=== PATIENT | male | born 1935 | race Caucasian/White ===

== ENCOUNTER → 2017-01-14 | Outpatient (CLI) | payer MEDICARE, OTHER ==
[2017-01-14 14:24] LABS: HEMATOCRIT 36.3 % (37.9-51.0); HEMOGLOBIN 12.1 g/dL (13.5-17.0); MEAN CORPUSCULAR HGB CONC 33.4 g/dL (32.0-36.0); MEAN CORPUSCULAR VOLUME 102 fl (80-97); RED BLOOD COUNT 3.57 10^6/uL (4.35-5.55); RED CELL DISTRIBUTION WIDTH 14.3 % (11.5-14.0); WHITE BLOOD COUNT 26.1 10^3/uL (4.0-10.5)
[2017-01-14 14:27] LABS: APPEARANCE,URINE CLEAR; BILIRUBIN,URINE NEGATIVE (NEGATIVE); GLUCOSE, URINE NEGATIVE (NEGATIVE); KETONES,URINE NEGATIVE (NEGATIVE); LEUKOCYTE ESTERASE,URINE NEGATIVE (NEGATIVE); NITRITE,URINE NEGATIVE (NEGATIVE); PROTEIN,URINE NEGATIVE (NEGATIVE); URINE SPECIFIC GRAVITY 1.006; UROBILINOGEN,URINE NEGATIVE mg/dL (<2.0)
[2017-01-14 14:45] LABS: ALBUMIN 3.9 g/dL (3.5-5.0); ANION GAP 8 (5-19); BLOOD UREA NITROGEN 43 mg/dL (7-20); CALCIUM 9.2 mg/dL (8.4-10.2); CARBON DIOXIDE 23 mmol/L (22-30); CHLORIDE 108 mmol/L (98-107); CREATININE RESULT 2.94 mg/dL (0.52-1.25); GLUCOSE 92 mg/dL (75-110); PHOSPHORUS 4.2 mg/dL (2.5-4.5); POTASSIUM 4.8 mmol/L (3.6-5.0); SODIUM 139.1 mmol/L (137-145)
[2017-01-14 14:52] LABS: BASOPHILS % (MANUAL) 0 % (0-2); EOSINOPHILS % (MANUAL) 1 % (0-6); TOTAL CELLS COUNTED 100
[2017-01-14 14:57] LABS: ANISOCYTOSIS SLIGHT; SMUDGE CELLS PRESENT; TOXIC GRANULATION SLIGHT
[2017-01-14 15:19] LABS: LYMPHOCYTES % (MANUAL) 67 % (13-45)
[2017-01-16 11:07] LABS: VITAMIN D 25-HYDROXY 53.8 ng/mL (30.0-100.0)
[2017-01-16 11:40] LABS: CREATININE URINE 42.2 mg/dL (Not Estab.); MICROALBUMIN URINE <3.0 ug/mL (Not Estab.)
== END ==
LOC: OD 13:30
PROVIDERS: ATTEND Internal Medicine Nephrology
DX: I12.9 Hypertensive chronic kidney disease with stage 1 through stage 4 chronic kidney disease, or unspecified chronic kidney disease (principal); N18.4 Chronic kidney disease, stage 4 (severe); N25.81 Secondary hyperparathyroidism of renal origin
CPT/HCPCS: 36415; 80048; 81001; 82040; 82043; 82306; 82570; 83970; 84100; 85025

== ENCOUNTER → 2017-05-18 | Outpatient (CLI) | payer MEDICARE, OTHER ==
[2017-05-18 12:31] LABS: ANION GAP 10 (5-19); BLOOD UREA NITROGEN 41 mg/dL (7-20); CALCIUM 8.2 mg/dL (8.4-10.2); CARBON DIOXIDE 21 mmol/L (22-30); CHLORIDE 109 mmol/L (98-107); CREATININE RESULT 3.61 mg/dL (0.52-1.25); GLUCOSE 135 mg/dL (75-110); POTASSIUM 4.7 mmol/L (3.6-5.0); SODIUM 140.3 mmol/L (137-145)
== END ==
LOC: OD 10:14
PROVIDERS: ATTEND Internal Medicine Nephrology
DX: N18.4 Chronic kidney disease, stage 4 (severe) (principal)
CPT/HCPCS: 36415; 80048

== ENCOUNTER → 2017-08-19 | Outpatient (CLI) | payer MEDICARE, OTHER ==
[2017-08-19 16:36] LABS: APPEARANCE,URINE CLEAR; BILIRUBIN,URINE NEGATIVE (NEGATIVE); GLUCOSE, URINE NEGATIVE (NEGATIVE); KETONES,URINE NEGATIVE (NEGATIVE); LEUKOCYTE ESTERASE,URINE NEGATIVE (NEGATIVE); NITRITE,URINE NEGATIVE (NEGATIVE); PROTEIN,URINE NEGATIVE (NEGATIVE); URINE SPECIFIC GRAVITY 1.009; UROBILINOGEN,URINE NEGATIVE mg/dL (<2.0)
[2017-08-19 16:39] LABS: ANION GAP 13 (5-19); BLOOD UREA NITROGEN 47 mg/dL (7-20); CALCIUM 8.9 mg/dL (8.4-10.2); CARBON DIOXIDE 22 mmol/L (22-30); CHLORIDE 109 mmol/L (98-107); CREATININE RESULT 3.17 mg/dL (0.52-1.25); GLUCOSE 104 mg/dL (75-110); POTASSIUM 5.2 mmol/L (3.6-5.0); SODIUM 144.4 mmol/L (137-145)
[2017-08-21 11:40] LABS: CREATININE URINE 69.9 mg/dL (Not Estab.)
== END ==
LOC: OD 15:02
PROVIDERS: ATTEND Internal Medicine Nephrology
DX: I12.9 Hypertensive chronic kidney disease with stage 1 through stage 4 chronic kidney disease, or unspecified chronic kidney disease (principal); N18.4 Chronic kidney disease, stage 4 (severe)
CPT/HCPCS: 36415; 80048; 81001; 82043; 82570

== ENCOUNTER → 2017-11-23 | Outpatient (CLI) | payer MEDICARE, OTHER ==
[2017-11-23 12:42] LABS: APPEARANCE,URINE CLEAR; BILIRUBIN,URINE NEGATIVE (NEGATIVE); COLOR,URINE YELLOW; GLUCOSE, URINE NEGATIVE (NEGATIVE); KETONES,URINE NEGATIVE (NEGATIVE); LEUKOCYTE ESTERASE,URINE NEGATIVE (NEGATIVE); NITRITE,URINE NEGATIVE (NEGATIVE); PROTEIN,URINE NEGATIVE (NEGATIVE); URINE SPECIFIC GRAVITY 1.006; UROBILINOGEN,URINE NEGATIVE mg/dL (<2.0)
[2017-11-23 12:50] LABS: HEMATOCRIT 36.9 % (37.9-51.0); HEMOGLOBIN 11.9 g/dL (13.5-17.0); MEAN CORPUSCULAR HEMOGLOBIN 33.2 pg (27.0-33.4); MEAN CORPUSCULAR HGB CONC 32.3 g/dL (32.0-36.0); MEAN CORPUSCULAR VOLUME 103 fl (80-97); RED BLOOD COUNT 3.59 10^6/uL (4.35-5.55); RED CELL DISTRIBUTION WIDTH 15.2 % (11.5-14.0)
[2017-11-23 12:56] LABS: ALBUMIN 4.2 g/dL (3.5-5.0); ANION GAP 10 (5-19); BLOOD UREA NITROGEN 43 mg/dL (7-20); CALCIUM 9.4 mg/dL (8.4-10.2); CARBON DIOXIDE 22 mmol/L (22-30); CHLORIDE 109 mmol/L (98-107); GLUCOSE 86 mg/dL (75-110); PHOSPHORUS 4.3 mg/dL (2.5-4.5); POTASSIUM 5.4 mmol/L (3.6-5.0)
[2017-11-23 13:17] LABS: PLATELET COUNT 91 10^3/uL (150-450); WHITE BLOOD COUNT 60.6 10^3/uL (4.0-10.5)
[2017-11-23 13:19] LABS: ABSOLUTE LYMPHOCYTES# (MANUAL) 57.6 10^3/uL (0.5-4.7); ABSOLUTE MONOCYTES # (MANUAL) 1.2 10^3/uL (0.1-1.4); ABSOLUTE NEUTROPHILS# (MANUAL) 1.8 10^3/uL (1.7-8.2); ANISOCYTOSIS SLIGHT; BASOPHILS % (MANUAL) 0 % (0-2); EOSINOPHILS % (MANUAL) 0 % (0-6); LYMPHOCYTES % (MANUAL) 95 % (13-45); MONOCYTES % (MANUAL) 2 % (3-13); OVALOCYTES SLIGHT; PLATELET COMMENT DECREASED; POIKILOCYTOSIS 1+; SCHISTOCYTES SLIGHT; SEGMENTED NEUTROPHILS % (MAN) 3 % (42-78); SMUDGE CELLS PRESENT; TOTAL CELLS COUNTED 100
[2017-11-24 12:38] LABS: CREATININE URINE 53.6 mg/dL (Not Estab.); MICROALBUMIN URINE 5.3 ug/mL (Not Estab.)
== END ==
LOC: OD 11:54
PROVIDERS: ATTEND Internal Medicine Nephrology
DX: I12.9 Hypertensive chronic kidney disease with stage 1 through stage 4 chronic kidney disease, or unspecified chronic kidney disease (principal); N18.4 Chronic kidney disease, stage 4 (severe); D64.9 Anemia, unspecified; C91.10 Chronic lymphocytic leukemia of B-cell type not having achieved remission
CPT/HCPCS: 36415; 80048; 81001; 82040; 82043; 82306; 82570; 83970; 84100; 85025

== ENCOUNTER → 2017-12-21 | Outpatient (CLI) | payer MEDICARE, OTHER ==
[2017-12-21 13:32] LABS: ANION GAP 7 (5-19); BLOOD UREA NITROGEN 56 mg/dL (7-20); CALCIUM 8.5 mg/dL (8.4-10.2); CARBON DIOXIDE 25 mmol/L (22-30); CHLORIDE 110 mmol/L (98-107); GLUCOSE 88 mg/dL (75-110); POTASSIUM 5.2 mmol/L (3.6-5.0); SODIUM 141.9 mmol/L (137-145)
== END ==
LOC: OD 12:22
PROVIDERS: ATTEND Internal Medicine Nephrology
DX: N17.9 Acute kidney failure, unspecified (principal); N18.4 Chronic kidney disease, stage 4 (severe); E87.5 Hyperkalemia
CPT/HCPCS: 36415; 80048

== ENCOUNTER → 2018-03-25 | Outpatient (CLI) | payer MEDICARE, OTHER ==
[2018-03-25 11:51] LABS: ANION GAP 11 (5-19); BLOOD UREA NITROGEN 60 mg/dL (7-20); CALCIUM 9.1 mg/dL (8.4-10.2); CARBON DIOXIDE 25 mmol/L (22-30); CHLORIDE 100 mmol/L (98-107); GLUCOSE 97 mg/dL (75-110); POTASSIUM 4.6 mmol/L (3.6-5.0); SODIUM 136.2 mmol/L (137-145)
== END ==
LOC: OD 10:49
PROVIDERS: ATTEND Internal Medicine Nephrology
DX: N25.81 Secondary hyperparathyroidism of renal origin (principal)
CPT/HCPCS: 36415; 80048; 83970

== ENCOUNTER → 2018-07-01 | Outpatient (CLI) | payer MEDICARE, OTHER ==
[2018-07-01 09:53] LABS: APPEARANCE,URINE CLEAR; BILIRUBIN,URINE NEGATIVE (NEGATIVE); COLOR,URINE YELLOW; GLUCOSE, URINE NEGATIVE (NEGATIVE); KETONES,URINE NEGATIVE (NEGATIVE); LEUKOCYTE ESTERASE,URINE NEGATIVE (NEGATIVE); NITRITE,URINE NEGATIVE (NEGATIVE); PROTEIN,URINE NEGATIVE (NEGATIVE); URINE SPECIFIC GRAVITY 1.008; UROBILINOGEN,URINE NEGATIVE mg/dL (<2.0)
[2018-07-01 09:57] LABS: ALBUMIN 3.6 g/dL (3.5-5.0); ANION GAP 10 (5-19); BLOOD UREA NITROGEN 43 mg/dL (7-20); CALCIUM 8.8 mg/dL (8.4-10.2); CARBON DIOXIDE 24 mmol/L (22-30); CHLORIDE 98 mmol/L (98-107); GLUCOSE 113 mg/dL (75-110); PHOSPHORUS 4.2 mg/dL (2.5-4.5); POTASSIUM 4.6 mmol/L (3.6-5.0); SODIUM 132.3 mmol/L (137-145)
[2018-07-02 13:39] LABS: CREATININE URINE 46.9 mg/dL (Not Estab.); MICROALBUMIN URINE <3.0 ug/mL (Not Estab.)
== END ==
LOC: OD 08:58
PROVIDERS: ATTEND Internal Medicine Nephrology
DX: I12.9 Hypertensive chronic kidney disease with stage 1 through stage 4 chronic kidney disease, or unspecified chronic kidney disease (principal); N18.4 Chronic kidney disease, stage 4 (severe); N25.81 Secondary hyperparathyroidism of renal origin; D64.9 Anemia, unspecified
CPT/HCPCS: 36415; 80048; 81001; 82040; 82043; 82306; 82570; 83970; 84100

== ENCOUNTER → 2018-10-07 | Outpatient (CLI) | payer MEDICARE, OTHER ==
[2018-10-07 10:22] LABS: ANION GAP 12 (5-19); BLOOD UREA NITROGEN 36 mg/dL (7-20); CALCIUM 9.3 mg/dL (8.4-10.2); CARBON DIOXIDE 26 mmol/L (22-30); CHLORIDE 104 mmol/L (98-107); GLUCOSE 102 mg/dL (75-110); SODIUM 142.2 mmol/L (137-145)
== END ==
LOC: OD 09:18
PROVIDERS: ATTEND Internal Medicine Nephrology
DX: C91.10 Chronic lymphocytic leukemia of B-cell type not having achieved remission (principal); N25.81 Secondary hyperparathyroidism of renal origin
CPT/HCPCS: 36415; 80048; 83970

== ENCOUNTER → 2019-01-09 | Outpatient (CLI) | payer MEDICARE, OTHER ==
--- NOTE | 2019-01-10 08:44 | RADIOLOGY REPORT (SQ) ---
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 RADIONUCLIDE AND DOSE: 10 mCi F18 FDG The route of agent administration: Intravenous FASTING BLOOD SUGAR: 99 mg/dl CONTRAST TYPE AND DOSE: No CT contrast given. TECHNIQUE: Blood glucose level was verified. Above dose of FDG was injected intravenously. 2-D seg mented attenuation correction images were obtained from the base of the skull to the midthighs. Nonc ontrast CT images were obtained for attenuation correction and fusion with emission images. CT image s were performed without oral or intravenous contrast and are not sensitive for parenchymal lesions. A series of overlapping emission PET images were obtained. Images reviewed and manipulated at [facility] work station by the radiologist. Images stored on PACS. LIMITATIONS: None. FINDINGS: HEAD AND NECK: No areas of abnormal metabolic activity in the soft tissues of the head and neck. CHEST: No areas of abnormal metabolic activity in the chest. ABDOMEN AND PELVIS: No areas of abnormal metabolic activity in the abdomen or pelvis. Expected physi ologic activity is present in the genitourinary system and bowel. PROXIMAL LOWER EXTREMITIES: No areas of abnormal metabolic activity in the soft tissues of the lower extremities. BONES: No abnormal metabolic activity in the visualized skeleton. ADDITIONAL CT FINDINGS: Large hiatal hernia. Gallstone. Colonic diverticulosis. Relative atrophic appearance of the right kidney compared to the left. OTHER: Background blood pool activity mean SUV 2.05. Background liver activity mean SUV 2.56. No ot her significant findings. IMPRESSION: 1. UNREMARKABLE PET-CT SCAN. NO EVIDENCE OF ADENOPATHY OR OTHER HYPERMETABOLIC LESIONS. 2. CHRONIC CT FINDINGS DESCRIBED ABOVE. THERE IS RELATIVE ATROPHIC APPEARANCE OF THE RIGHT KIDNEY WHICH HAS DEVELOPED SINCE THE PRIOR CT IN 2009. TECHNICAL DOCUMENTATION: JOB ID: [id number] [employer]- All Rights Reserved Reading location - IP/workstation name: [email or web address]
== END ==
LOC: RAD 15:37
PROVIDERS: ATTEND Internal Medicine Medical Oncology
DX: C91.90 Lymphoid leukemia, unspecified not having achieved remission (principal)
CPT/HCPCS: 78815; A9552

== ENCOUNTER → 2019-02-16 | Outpatient (CLI) | payer MEDICARE, OTHER ==
[2019-02-16 10:57] LABS: ALBUMIN 3.7 g/dL (3.5-5.0); ANION GAP 7 (5-19); BLOOD UREA NITROGEN 42 mg/dL (7-20); CARBON DIOXIDE 25 mmol/L (22-30); CHLORIDE 103 mmol/L (98-107); GLUCOSE 100 mg/dL (75-110); PHOSPHORUS 4.4 mg/dL (2.5-4.5); POTASSIUM 4.8 mmol/L (3.6-5.0); SODIUM 135.4 mmol/L (137-145)
[2019-02-16 11:05] LABS: APPEARANCE,URINE CLEAR; BILIRUBIN,URINE NEGATIVE (NEGATIVE); COLOR,URINE YELLOW; GLUCOSE, URINE NEGATIVE (NEGATIVE); KETONES,URINE NEGATIVE (NEGATIVE); LEUKOCYTE ESTERASE,URINE NEGATIVE (NEGATIVE); NITRITE,URINE NEGATIVE (NEGATIVE); PROTEIN,URINE NEGATIVE (NEGATIVE); URINE SPECIFIC GRAVITY 1.008; UROBILINOGEN,URINE NEGATIVE mg/dL (<2.0)
[2019-02-17 13:37] LABS: MICROALBUMIN URINE 5.3 ug/mL (Not Estab.)
== END ==
LOC: OD 10:05
PROVIDERS: ATTEND Internal Medicine Nephrology
DX: I12.9 Hypertensive chronic kidney disease with stage 1 through stage 4 chronic kidney disease, or unspecified chronic kidney disease (principal); N18.4 Chronic kidney disease, stage 4 (severe); D64.9 Anemia, unspecified
CPT/HCPCS: 36415; 80069; 81001; 82043; 82306; 82570; 83970

== ENCOUNTER 2019-04-23 11:59 | Observation (INO) | payer MEDICARE, OTHER ==
[2019-04-23] MEDS ORDERED: CEFTRIAXONE 1 GM/D5W RTU 1 GM/50 ML RTUPB IV ONE (12:42)
--- NOTE | 2019-04-23 12:51 | ER Document Report ---
ED Medical Screen (RME) - General Chief Complaint: Dog Bite Stated Complaint: DOG BITE Time Seen by Provider: 04/23/19 12:24 Primary Care Provider: WILLOW GRIGSBY MD [Primary Care Provider] - Follow up as needed Mode of Arrival: Ambulatory Information source: Patient Notes: Patient is an 83-year-old male presented to the emergency department with complaint of redness and swelling to his right upper extremity. Patient reports on Thursday he had an incident where he was scratched by his dog's mouth. Patient denies that this was a bite as he states the dog does not have any teeth however there is something sharp in the dog's mouth that punctured his skin. Patient reports the next day he was seen at his primary care provider where Steri-Strips were placed to the area and no antibiotics were initiated. It is now 2 days post incident and patient has erythema and swelling from the mid hand extending to the mid forearm. He is unable to completely close his hand and has limited strength in the right upper extremity. There is a strong radial pulse and cap refill is less than 3 seconds. 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 I have greeted and performed a rapid initial assessment of this patient. A comprehensive ED assessment and evaluation of the patient, analysis of test results and completion of the medical decision making process will be conducted by additional ED providers. I have specifically instructed the patient or family members with the patient to immediately return to any nursing staff should anything change in the patient's condition or with their chief complaint. This medical record was dictated with voice recognizing software. There may be grammatical, syntax errors that are unintended. TRAVEL OUTSIDE OF THE [place] IN LAST 30 DAYS: No - Related Data Allergies/Adverse Reactions: No Known Allergies Allergy (Verified 04/23/19 12:02) Past Medical History - Social History Frequency of alcohol use: None Drug Abuse: None - Past Medical History Cardiac Medical History: Reports: Hx Coronary Artery Disease, Hx Hypertension - MEDICATED AND CONTROLLED Denies: Hx Heart Attack Pulmonary Medical History: Reports: Hx Bronchitis, Hx COPD Denies: Hx Asthma, Hx Pneumonia Neurological Medical History: Denies: Hx Cerebrovascular Accident, Hx Seizures Renal/ Medical History: Denies: Hx Peritoneal Dialysis GI Medical History: Denies: Hx Hepatitis, Hx Hiatal Hernia, Hx Ulcer Musculoskeltal Medical History: Reports Hx Arthritis Infectious Medical History: Denies: Hx Hepatitis Past Surgical History: Denies: Hx Open Heart Surgery, Hx Pacemaker - Immunizations Hx Diphtheria, Pertussis, Tetanus Vaccination: Yes Physical Exam - Vital signs Vitals: Temp Pulse Resp BP Pulse Ox 98.2 F 91 20 140/60 H 94 04/23/19 12:05 04/23/19 12:05 04/23/19 12:05 04/23/19 12:05 04/23/19 12:05 Course - Vital Signs Vital signs: Temp Pulse Resp BP Pulse Ox 98.2 F 91 20 140/60 H 94 04/23/19 12:05 04/23/19 12:05 04/23/19 12:05 04/23/19 12:05 04/23/19 12:05 Doctor's Discharge - Discharge Referrals: WILLOW GRIGSBY MD [Primary Care Provider] - Follow up as needed
[2019-04-23 13:26] LABS: HEMATOCRIT 38.3 % (37.9-51.0); HEMOGLOBIN 12.7 g/dL (13.5-17.0); MEAN CORPUSCULAR HEMOGLOBIN 32.7 pg (27.0-33.4); MEAN CORPUSCULAR HGB CONC 33.3 g/dL (32.0-36.0); MEAN CORPUSCULAR VOLUME 98 fl (80-97); PLATELET COUNT 108 10^3/uL (150-450); RED BLOOD COUNT 3.89 10^6/uL (4.35-5.55); RED CELL DISTRIBUTION WIDTH 14.5 % (11.5-14.0); WHITE BLOOD COUNT 22.2 10^3/uL (4.0-10.5)
[2019-04-23 13:35] LABS: ALANINE AMINOTRANSFERASE 18 U/L (21-72); ALBUMIN 3.9 g/dL (3.5-5.0); ALKALINE PHOSPHATASE 80 U/L (38-126); ANION GAP 8 (5-19); ASPARTATE AMINO TRANSFERASE 15 U/L (17-59); BILIRUBIN,DIRECT 0.3 mg/dL (0.0-0.4); BILIRUBIN,TOTAL 1.1 mg/dL (0.2-1.3); BLOOD UREA NITROGEN 54 mg/dL (7-20); CALCIUM 8.8 mg/dL (8.4-10.2); CARBON DIOXIDE 26 mmol/L (22-30); CHLORIDE 103 mmol/L (98-107); GLUCOSE 108 mg/dL (75-110); POTASSIUM 4.7 mmol/L (3.6-5.0); SODIUM 137.1 mmol/L (137-145); TOTAL PROTEIN 6.1 g/dL (6.3-8.2)
[2019-04-23 13:42] LABS: ABSOLUTE LYMPHOCYTES# (MANUAL) 10.4 10^3/uL (0.5-4.7); ABSOLUTE MONOCYTES # (MANUAL) 0.7 10^3/uL (0.1-1.4); BASOPHILS % (MANUAL) 0 % (0-2); EOSINOPHILS % (MANUAL) 0 % (0-6); LYMPHOCYTES % (MANUAL) 47 % (13-45); MONOCYTES % (MANUAL) 3 % (3-13); SEGMENTED NEUTROPHILS % (MAN) 50 % (42-78); TOTAL CELLS COUNTED 100
[2019-04-23 13:44] LABS: ANISOCYTOSIS SLIGHT; PLATELET COMMENT DECREASED; TOXIC GRANULATION 1+
--- NOTE | 2019-04-23 15:16 | RADIOLOGY REPORT (SQ) ---
EXAM DESCRIPTION: FOREARM RIGHT COMPLETED DATE/TIME: 04/23/2019 2:56 pm REASON FOR STUDY: swelling from hand to FA, dog bite COMPARISON: None. NUMBER OF VIEWS: Two views. TECHNIQUE: Two radiographic images acquired of the right forearm, including elbow and wrist in at le ast one projection. LIMITATIONS: None. FINDINGS: MINERALIZATION: Normal. BONES: No acute fracture. No worrisome bone lesions. SOFT TISSUES: No obvious swelling or foreign body. OTHER: No other significant finding. IMPRESSION: NEGATIVE STUDY OF THE RIGHT FOREARM. NO RADIOGRAPHIC EVIDENCE OF ACUTE INJURY. TECHNICAL DOCUMENTATION: JOB ID: [id number] [employer]- All Rights Reserved Reading location - IP/workstation name: [email or web address]
--- NOTE | 2019-04-23 15:29 | ER Document Report ---
ED Animal Bite - General Chief Complaint: Dog Bite Stated Complaint: DOG BITE Time Seen by Provider: 04/23/19 12:24 Primary Care Provider: WILLOW GRIGSBY MD [ACTIVE STAFF] - Follow up as needed Mode of Arrival: Ambulatory Notes: 83-year-old male with CLL and CKD presents to the emergency department with complaint of redness and swelling to his right upper extremity. Patient reports on Thursday he had an incident where he was scratched by his dog's mouth. Patient denies that this was a bite as he states the dog does not have any teeth however there is something sharp in the dog's mouth that punctured his skin. Patient reports the next day he was seen at his primary care provider where Steri-Strips were placed to the area and no antibiotics were initiated. It is now 3 days post incident and patient has erythema and swelling from the mid hand extending to the mid forearm. He is unable to completely close his hand and has limited strength in the right upper extremity. There is a strong radial pulse and cap refill is less than 3 seconds. TRAVEL OUTSIDE OF THE [place] IN LAST 30 DAYS: No - Related Data Allergies/Adverse Reactions: No Known Allergies Allergy (Verified 04/23/19 12:02) Past Medical History - General Information source: Patient - Social History Smoking Status: Former Smoker Frequency of alcohol use: None Drug Abuse: None Family History: None Patient has suicidal ideation: No Patient has homicidal ideation: No - Past Medical History Cardiac Medical History: Reports: Hx Coronary Artery Disease, Hx Hypertension - MEDICATED AND CONTROLLED Denies: Hx Heart Attack Pulmonary Medical History: Reports: Hx Bronchitis, Hx COPD Denies: Hx Asthma, Hx Pneumonia Neurological Medical History: Denies: Hx Cerebrovascular Accident, Hx Seizures Renal/ Medical History: Denies: Hx Peritoneal Dialysis GI Medical History: Denies: Hx Hepatitis, Hx Hiatal Hernia, Hx Ulcer Musculoskeletal Medical History: Reports Hx Arthritis Infectious Medical History: Denies: Hx Hepatitis Past Surgical History: Denies: Hx Open Heart Surgery, Hx Pacemaker - Immunizations Hx Diphtheria, Pertussis, Tetanus Vaccination: Yes Hx Pneumococcal Vaccination: 12/10/10 Review of Systems - Review of Systems Constitutional: See HPI EENT: No symptoms reported Cardiovascular: See HPI Respiratory: See HPI Gastrointestinal: See HPI Genitourinary: See HPI Male Genitourinary: No symptoms reported Musculoskeletal: No symptoms reported Skin: No symptoms reported Hematologic/Lymphatic: No symptoms reported Neurological/Psychological: No symptoms reported Physical Exam - Vital signs Vitals: Temp Pulse Resp BP Pulse Ox 98.2 F 91 20 140/60 H 94 04/23/19 12:05 04/23/19 12:05 04/23/19 12:05 04/23/19 12:05 04/23/19 12:05 - Notes Notes: PHYSICAL EXAMINATION: Reviewed vital signs and charting by RN GENERAL: Alert, interacts well. No acute distress. HEAD: Normocephalic, atraumatic. EYES: Pupils equal and round. Extraocular movements intact. ENT: Oral mucosa moist, tongue midline. NECK: Full range of motion. Trachea midline. HEART: Regular rate and rhythm. No murmur EXTREMITIES: Moves all 4 extremities spontaneously. No cyanosis. PSYCH: Normal affect, normal mood. SKIN: Warm, dry, normal turgor. Small superficial linear oozing abrasion on the dorsal aspect of the right hand with significant cellulitis from the DIPs of the right hand to the mid forearm, very warm to touch compared to opposite arm Course - Re-evaluation Re-evalutation: 04/23/19 15:28 Overall well-appearing. Patient is afebrile. Patient's WBC count is 22,200 but patient has CLL and his last documented white count was 60,000. Patient does have significant cellulitis and has received Rocephin 1 g IV. 04/23/19 16:[address] Maria, hospitalist, who is going to admit the patient for full admission for IV antibiotics. - Vital Signs Vital signs: Temp Pulse Resp BP Pulse Ox 98.2 F 91 20 140/60 H 94 04/23/19 12:05 04/23/19 12:05 04/23/19 12:05 04/23/19 12:05 04/23/19 12:05 - Laboratory Result Diagrams: 04/23/19 13:00 04/23/19 13:00 Laboratory results interpreted by me: 04/23/19 04/23/19 13:00 13:00 WBC 22.2 H RBC 3.89 L Hgb 12.7 L MCV 98 H RDW 14.5 H Plt Count 108 L Lymphocytes % (Manual) 47 H Abs Neuts (Manual) 11.1 H Abs Lymphs (Manual) 10.4 H BUN 54 H Creatinine 3.77 H Est GFR ( Amer) 19 L Est GFR (Non-Af Amer) 15 L AST 15 L ALT 18 L Total Protein 6.1 L Discharge - Discharge Clinical Impression: Cellulitis Qualifiers: Site of cellulitis: extremity Site of cellulitis of extremity: upper extremity Laterality: right Qualified Code(s): L03.113 - Cellulitis of right upper limb Condition: Stable Disposition: ADMITTED INPATIENT Admitting Provider: Candace (Hospitalist) Unit Admitted: Medical Floor Referrals: WILLOW GRIGSBY MD [ACTIVE STAFF] - Follow up as needed
[2019-04-23] MEDS ORDERED: ONDANSETRON HCL INJ/PF 4 MG/2 ML SDV IV PRN (16:39)
[2019-04-23] MEDS ORDERED: OXYCODONE-ACETAMINOPHEN 5-325 MG TABLET PO PRN (16:39)
[2019-04-23] MEDS ORDERED: PROMETHAZINE HCL 25 MG TABLET PO PRN (16:39)
[2019-04-23] MEDS ORDERED: ACETAMINOPHEN 325 MG TABLET PO PRN (16:39)
[2019-04-23] MEDS ORDERED: IPRATROPIUM/ALBUTEROL 0.5-2.5 MG/3 ML AMPUL NEB PRN (16:39)
[2019-04-23] MEDS ORDERED: MAGNESIUM HYDROXIDE SUSP 30 ML UDCUP PO PRN (16:39)
[2019-04-23] MEDS ORDERED: TEMAZEPAM 15 MG CAPSULE PO PRN (16:39)
--- NOTE | 2019-04-23 18:15 | PDOC H&P ---
History of Present Illness Admission Date/PCP: 04/23/19 17:20 NEWTON WALTER MD History of Present Illness: CHARIS HERNANDEZ is a 83 year old male past medical history of CLL on dapsone and idelalisib followed by outpatient oncology, CKD stage IV followed by outpatient nephrology, hypertension who presented to ED complaining of right upper extremity swelling redness and pain. Patient stating that he has a dog who does not have any teeth but somehow it scratched his right hand with its mouth last Thursday. He sustained a linear tear over the dorsal aspect of the first right metacarpal. Following that he went to his PCP wound was cleaned but no antibiotics was initiated as there was no sign infection at the time. Yesterday he started to notice swelling, erythema, weeping discharge and pain on his right upper extremity. On physical examination there is a linear wound on the dorsal aspect of the first metacarpals which is edematous with weeping discharge, swollen, tender to palpation. There is redness extending distally to his fingertips and proximally to mid forearm. He describes the pain as sharp, constant, 2/10, radiation proximally. Denies any shortness of breath, chest pain, nausea, diarrhea, constipation or any urinary symptoms. In ED he was found to have WBC of 22.2, platelets 108, no bands, RUE x-ray negative for any acute injuries. He was a started on ceftriaxone and hospital was consulted for admission. Past Medical History Cardiac Medical History: Reports: Coronary Artery Disease, Hypertension - MEDICATED AND CONTROLLED Denies: Myocardial Infarction Pulmonary Medical History: Reports: Bronchitis, Chronic Obstructive Pulmonary Disease (COPD) Denies: Asthma, Pneumonia Neurological Medical History: Denies: Seizures GI Medical History: Denies: Hepatitis, Hiatal Hernia Musculoskeltal Medical History: Reports: Arthritis Hematology: Denies: Anemia, Sickle Cell Disease Past Surgical History Past Surgical History: Denies: Pacemaker Social History Smoking Status: Former Smoker - Advance Directive Resuscitation Status: Full Code Family History Family History: None Parental Family History Reviewed: Yes Children Family History Reviewed: Yes Sibling(s) Family History Reviewed.: Yes Medication/Allergy Home Medications: Albuterol Sulfate [Ventolin HFA MDI 18 GM] 2 puff IH Q4H PRN 09/07/13 Cholecalciferol (Vitamin D3) [Vitamin D3 2000 unit Capsule] 2,000 unit PO DAILY 09/07/13 Dapsone [Dapsone 25 mg Tablet] 25 mg PO DAILY 09/07/13 FA/Mv,Ca,Iron,Min/Lycopene/Lut [Centrum Tablet] 1 tab PO DAILY 09/07/13 Fexofenadine HCl [Laura] 180 mg PO DAILY 09/07/13 Gemfibrozil [Lopid 600 Mg Tablet] 600 mg PO DAILY 09/07/13 Fellows-3 Fatty Acids/Fish Oil [Fish Oil 1,000 mg Capsule] 1,000 mg PO DAILY 09/07/13 Telmisartan/Hydrochlorothiazid [Micardis HCT 80-12.5 mg Tablet] 1 tab PO DAILY 09/07/13 Tiotropium [place] [Spiriva Handihaler 18 mcg/dose (30 Dose)] 1 cap IH DAILY 09/07/13 Allergies/Adverse Reactions: No Known Allergies Allergy (Verified 04/23/19 12:02) Review of Systems Review of Systems: as per hpi Physical Exam Vital Signs: Temp Pulse Resp BP Pulse Ox 98.2 F 91 20 140/60 H 94 04/23/19 12:05 04/23/19 12:05 04/23/19 12:05 04/23/19 12:05 04/23/19 12:05 Intake & Output 04/22/19 04/23/19 04/24/19 06:59 06:59 06:59 Weight 85 kg General appearance: PRESENT: no acute distress, well-developed, well-nourished Head exam: PRESENT: atraumatic, normocephalic Respiratory exam: PRESENT: clear to auscultation una. ABSENT: rales, rhonchi, wheezes Cardiovascular exam: PRESENT: RRR. ABSENT: diastolic murmur, rubs, systolic murmur GI/Abdominal exam: PRESENT: normal bowel sounds, soft. ABSENT: distended, guarding, mass, organolmegaly, rebound, tenderness Extremities exam: PRESENT: full ROM. ABSENT: calf tenderness, clubbing, pedal edema Neurological exam: PRESENT: alert, awake, oriented to person, oriented to place, oriented to time, oriented to situation, CN II-XII grossly intact. ABSENT: motor sensory deficit Skin exam: PRESENT: skin tears - 3 cm, linear tear, dorsal first metacarpal. clear discharge, TTP, erythematous extending proxiamlly and distally. Neurovasculary intact. Results Laboratory Results: 04/23/19 13:00 04/23/19 13:00 04/23/19 04/23/19 04/23/19 13:00 13:00 16:26 WBC 22.2 H RBC 3.89 L Hgb 12.7 L Hct 38.3 MCV 98 H MCH 32.7 MCHC 33.3 RDW 14.5 H Plt Count 108 L Seg Neutrophils % Not Reportable Lymphocytes % Not Reportable Monocytes % Not Reportable Eosinophils % Not Reportable Basophils % Not Reportable Absolute Neutrophils Not Reportable Absolute Lymphocytes Not Reportable Absolute Monocytes Not Reportable Absolute Eosinophils Not Reportable Absolute Basophils Not Reportable Sodium 137.1 Potassium 4.7 Chloride 103 Carbon Dioxide 26 Anion Gap 8 BUN 54 H Creatinine 3.77 H Est GFR ( Amer) 19 L Est GFR (Non-Af Amer) 15 L Glucose 108 Calcium 8.8 Total Bilirubin 1.1 AST 15 L ALT 18 L Alkaline Phosphatase 80 C-Reactive Protein 201.6 H Total Protein 6.1 L Albumin 3.9 Impressions: Forearm X-Ray 04/23/19 12:41 IMPRESSION: NEGATIVE STUDY OF THE RIGHT FOREARM. NO RADIOGRAPHIC EVIDENCE OF ACUTE INJURY. Assessment and Plan - Diagnosis (1) Cellulitis of right hand Is this a current diagnosis for this admission?: Yes Plan: Secondary to dog bite. Has WBC of 22,000 which could be partly due to his underlying CLL. Elevated ESR and CRP. X-ray negative for any acute changes. Started on IV ceftriaxone which could be transitioned to Augmentin based on cli nical improvement. Continue wound care, follow wound and blood culture. (2) Dog bite of right hand including fingers with infection Qualifiers: Encounter type: initial encounter Qualified Code(s): S61.451A - Open bite of right hand, initial encounter; S61.259A - Open bite of unspecified finger without damage to nail, initial encounter; L08.9 - Local infection of the skin and subcutaneous tissue, unspecified; W54.0XXA - Bitten by dog, initial encounter Is this a current diagnosis for this admission?: Yes Plan: As per #1. (3) CLL (chronic lymphocytic leukemia) Is this a current diagnosis for this admission?: Yes Plan: In remission. Has established oncology care as outpatient. Restart home meds. (4) HTN (hypertension) Is this a current diagnosis for this admission?: Yes Plan: Euvolemic. Normotensive. Restart home meds. IV hydralazine. Adjust meds as needed. Outpatient PCP follow-up. (5) CKD (chronic kidney disease), stage IV Is this a current diagnosis for this admission?: Yes Plan: Nonoliguric. Not uremic. Creatinine at baseline. Electrolytes within normal limits. Avoid nephrotoxic agents, monitor volume status and electrolytes. Replace as needed. Outpatient nephrology follow-up.
[2019-04-23] MEDS: FAMOTIDINE 20 MG TABLET PO SCH (21:28)
[2019-04-24 05:35] LABS: HEMATOCRIT 34.5 % (37.9-51.0); HEMOGLOBIN 11.5 g/dL (13.5-17.0); MEAN CORPUSCULAR HEMOGLOBIN 32.5 pg (27.0-33.4); MEAN CORPUSCULAR HGB CONC 33.3 g/dL (32.0-36.0); MEAN CORPUSCULAR VOLUME 98 fl (80-97); PLATELET COUNT 109 10^3/uL (150-450); RED BLOOD COUNT 3.54 10^6/uL (4.35-5.55); RED CELL DISTRIBUTION WIDTH 14.6 % (11.5-14.0); WHITE BLOOD COUNT 18.7 10^3/uL (4.0-10.5)
[2019-04-24 05:58] LABS: BLOOD UREA NITROGEN 56 mg/dL (7-20); CALCIUM 8.5 mg/dL (8.4-10.2); CARBON DIOXIDE 21 mmol/L (22-30); GLUCOSE 128 mg/dL (75-110)
[2019-04-24 06:00] LABS: ANION GAP 9 (5-19); CHLORIDE 106 mmol/L (98-107); SODIUM 136.1 mmol/L (137-145)
[2019-04-24 06:02] LABS: POTASSIUM 4.7 mmol/L (3.6-5.0)
[2019-04-24] MEDS: ENOXAPARIN SODIUM INJ 30 MG/0.3 ML DISP.SYRIN SUBCUT SCH (09:16)
[2019-04-24] MEDS: CEFTRIAXONE 2 GM/D5W RTU 2 GM/50 ML RTUPB IV SCH (09:22)
[2019-04-24] MEDS: HYDROCHLOROTHIAZIDE 12.5 MG TABLET PO SCH (09:23)
[2019-04-24] MEDS: DOCUSATE SODIUM 100 MG CAPSULE PO SCH (09:23)
[2019-04-24] MEDS: LOSARTAN POTASSIUM 50 MG TABLET PO SCH (09:23)
[2019-04-24] MEDS: MULTIVITAMIN TABLET PO SCH (09:23)
[2019-04-24] MEDS: CHOLECALCIFEROL (D3) 1,000 UNIT (25 MCG) TABLET PO SCH (09:23)
[2019-04-24] MEDS: FAMOTIDINE 20 MG TABLET PO SCH ×2 (09:23→23:20)
[2019-04-24] MEDS: LORATADINE 10 MG TABLET PO SCH (09:23)
[2019-04-24] MEDS: OMEGA-3 ACID ETHYL ESTERS 1 GM CAPSULE PO SCH (09:23)
[2019-04-24] MEDS: TIOTROPIUM BROMIDE DPI 5 CAP/KIT (18 MCG/CAP) IH SCH (09:23)
[2019-04-24] MEDS: GEMFIBROZIL 600 MG TABLET PO SCH (09:24)
[2019-04-24] MEDS: DAPSONE 25 MG TABLET PO SCH (09:24)
--- NOTE | 2019-04-24 11:37 | PDOC PROGRESS REPORT ---
Subjective Progress Note for:: 04/24/19 Subjective:: CHARIS HERNANDEZ is a 83 year old male past medical history of CLL on dapsone and idelalisib followed by outpatient oncology, CKD stage IV followed by outpatient nephrology, hypertension who presented to ED complaining of right upper extremity swelling redness and pain. Patient stating that he has a dog who does not have any teeth but somehow it scratched his right hand with its mouth last Thursday. He sustained a linear tear over the dorsal aspect of the first right metacarpal. Following that he went to his PCP wound was cleaned but no antibiotics was initiated as there was no sign infection at the time. Yesterday he started to notice swelling, erythema, weeping discharge and pain on his right upper extremity. On physical examination there is a linear wound on the dorsal aspect of the first metacarpals which is edematous with weeping discharge, swollen, tender to palpation. There is redness extending distally to his fingertips and proximally to mid forearm. He describes the pain as sharp, constant, 2/10, radiation proximally. Denies any shortness of breath, chest pain, nausea, diarrhea, constipation or any urinary symptoms. In ED he was found to have WBC of 22.2, platelets 108, no bands, RUE x-ray negative for any acute injuries. He was a started on ceftriaxone and hospital was consulted for admission. 04/24/2019. No acute events overnight. Patient reporting improvement of right upper extremity cellulitis. Pain has improved. Denies any fever, chills, nausea, vomiting, diarrhea, constipation or any urinary symptoms. Reason For Visit: CELLULITIS Physical Exam Vital Signs: Temp Pulse Resp BP Pulse Ox 98.0 F 70 16 120/53 L 98 04/24/19 08:01 04/24/19 08:01 04/24/19 08:01 04/24/19 08:01 04/24/19 08:01 Intake & Output 04/23/19 04/24/19 04/25/19 06:59 06:59 06:59 Intake Total 530 Balance 530 Weight 85 kg General appearance: PRESENT: no acute distress, well-developed, well-nourished Head exam: PRESENT: atraumatic, normocephalic Respiratory exam: PRESENT: clear to auscultation una. ABSENT: rales, rhonchi, wheezes Cardiovascular exam: PRESENT: RRR. ABSENT: diastolic murmur, rubs, systolic murmur GI/Abdominal exam: PRESENT: normal bowel sounds, soft. ABSENT: distended, guarding, mass, organolmegaly, rebound, tenderness Extremities exam: PRESENT: full ROM. ABSENT: calf tenderness, clubbing, pedal edema Musculoskeletal exam: PRESENT: other - Right hand swelling, erythema extending distally and proximally but much improved than yesterday. Neurovascularly intact. No discharge. Neurological exam: PRESENT: alert, awake, oriented to person, oriented to place, oriented to time, oriented to situation, CN II-XII grossly intact. ABSENT: motor sensory deficit Results Laboratory Results: 04/24/19 05:27 04/24/19 05:27 04/23/19 04/23/19 04/23/19 13:00 13:00 16:26 WBC 22.2 H RBC 3.89 L Hgb 12.7 L Hct 38.3 MCV 98 H MCH 32.7 MCHC 33.3 RDW 14.5 H Plt Count 108 L Seg Neutrophils % Not Reportable Lymphocytes % Not Reportable Monocytes % Not Reportable Eosinophils % Not Reportable Basophils % Not Reportable Absolute Neutrophils Not Reportable Absolute Lymphocytes Not Reportable Absolute Monocytes Not Reportable Absolute Eosinophils Not Reportable Absolute Basophils Not Reportable Sodium 137.1 Potassium 4.7 Chloride 103 Carbon Dioxide 26 Anion Gap 8 BUN 54 H Creatinine 3.77 H Est GFR ( Amer) 19 L Est GFR (Non-Af Amer) 15 L Glucose 108 Calcium 8.8 Total Bilirubin 1.1 AST 15 L ALT 18 L Alkaline Phosphatase 80 C-Reactive Protein 201.6 H Total Protein 6.1 L Albumin 3.9 04/24/19 04/24/19 05:27 05:27 WBC 18.7 H RBC 3.54 L Hgb 11.5 L Hct 34.5 L MCV 98 H MCH 32.5 MCHC 33.3 RDW 14.6 H Plt Count 109 L Seg Neutrophils % Lymphocytes % Monocytes % Eosinophils % Basophils % Absolute Neutrophils Absolute Lymphocytes Absolute Monocytes Absolute Eosinophils Absolute Basophils Sodium 136.1 L Potassium 4.7 Chloride 106 Carbon Dioxide 21 L Anion Gap 9 BUN 56 H Creatinine 3.64 H Est GFR ( Amer) 19 L Est GFR (Non-Af Amer) 16 L Glucose 128 H Calcium 8.5 Total Bilirubin AST ALT Alkaline Phosphatase C-Reactive Protein Total Protein Albumin Impressions: Forearm X-Ray 04/23/19 12:41 IMPRESSION: NEGATIVE STUDY OF THE RIGHT FOREARM. NO RADIOGRAPHIC EVIDENCE OF ACUTE INJURY. Assessment and Plan - Diagnosis (1) Cellulitis of right hand Is this a current diagnosis for this admission?: Yes Plan: Secondary to dog bite. Improving. Still erythematous swollen and tender to palpation. Vascularly intact. WBC 18.7 down from 22,000 which could be partly due to his underlying CLL. Elevated ESR and CRP. X-ray negative for any acute changes. Day 2 IV ceftriaxone. Antibiotics day 2. She can be transitioned to p.o. antibiotics with clinical improvement and once ready to discharge. Continue wound care, follow wound and blood culture. (2) Dog bite of right hand including fingers with infection Qualifiers: Encounter type: initial encounter Qualified Code(s): S61.451A - Open bite of right hand, initial encounter; S61.259A - Open bite of unspecified finger without damage to nail, initial encounter; L08.9 - Local infection of the skin and subcutaneous tissue, unspecified; W54.0XXA - Bitten by dog, initial encounter Is this a current diagnosis for this admission?: Yes Plan: As per #1. (3) CLL (chronic lymphocytic leukemia) Is this a current diagnosis for this admission?: Yes Plan: In remission. Has established oncology care as outpatient. Restart home meds. (4) HTN (hypertension) Is this a current diagnosis for this admission?: Yes Plan: Euvolemic. Normotensive. Restart home meds. IV hydralazine. Adjust meds as needed. Outpatient PCP follow-up. (5) CKD (chronic kidney disease), stage IV Is this a current diagnosis for this admission?: Yes Plan: Nonoliguric. Not uremic. Creatinine at baseline. Electrolytes within normal limits. Avoid nephrotoxic agents, monitor volume status and electrolytes. Replace as needed. Outpatient nephrology follow-up.
[2019-04-25] MEDS: ENOXAPARIN SODIUM INJ 30 MG/0.3 ML DISP.SYRIN SUBCUT SCH (09:27)
[2019-04-25] MEDS: TIOTROPIUM BROMIDE DPI 5 CAP/KIT (18 MCG/CAP) IH SCH (09:28)
[2019-04-25] MEDS: FAMOTIDINE 20 MG TABLET PO SCH (09:35)
[2019-04-25] MEDS: HYDROCHLOROTHIAZIDE 12.5 MG TABLET PO SCH (09:35)
[2019-04-25] MEDS: CEFTRIAXONE 2 GM/D5W RTU 2 GM/50 ML RTUPB IV SCH (09:35)
[2019-04-25] MEDS: LOSARTAN POTASSIUM 50 MG TABLET PO SCH (09:35)
[2019-04-25] MEDS: CHOLECALCIFEROL (D3) 1,000 UNIT (25 MCG) TABLET PO SCH (09:35)
[2019-04-25] MEDS: OMEGA-3 ACID ETHYL ESTERS 1 GM CAPSULE PO SCH (09:35)
[2019-04-25] MEDS: MULTIVITAMIN TABLET PO SCH (09:36)
[2019-04-25] MEDS: DAPSONE 25 MG TABLET PO SCH (09:36)
[2019-04-25] MEDS: GEMFIBROZIL 600 MG TABLET PO SCH (09:38)
[2019-04-25] MEDS: LORATADINE 10 MG TABLET PO SCH (09:38)
[2019-04-25] MEDS: DOCUSATE SODIUM 100 MG CAPSULE PO SCH (09:38)
[2019-04-25 13:00] VITALS: BP 116/74
[2019-04-25] MEDS ORDERED: ACETAMINOPHEN 325 MG TABLET PO PRN (13:00)
[2019-04-25] MEDS ORDERED: ONDANSETRON HCL INJ/PF 4 MG/2 ML SDV IV PRN (13:00)
--- NOTE | 2019-04-25 13:15 | PDOC DISCHARGE SUMMARY ---
General - Admit/Disc Date/PCP Admission Date/Primary Care Provider: 04/23/19 17:20 NEWTON WALTER MD Discharge Date: 04/25/19 - Discharge Diagnosis (1) Cellulitis of right hand Is this a current diagnosis for this admission?: Yes Summary: Secondary to dog bite. Has WBC of 22,000 which could be partly due to his underlying CLL. Elevated ESR and CRP. X-ray negative for any acute changes. Started on IV ceftriaxone which could be transitioned to Augmentin based on clinical improvement. Continue wound care, follow wound and blood culture. 04/25/2019-patient came in with cellulitis of the right hand due to dog bite. Initial WBC count is 22,000. May be secondary to underlying CLL. Wound cultures came back as a skin travon. Blood cultures are negative. Patient is going to go home on Augmentin 1 tablet twice a day for 10 days. Patient is strongly advised to follow-up with primary care physician in 3 to 5 days. (2) Dog bite of right hand including fingers with infection Is this a current diagnosis for this admission?: Yes (3) CLL (chronic lymphocytic leukemia) Is this a current diagnosis for this admission?: Yes Summary: In remission. Has established oncology care as outpatient. Restart home meds. (4) HTN (hypertension) Is this a current diagnosis for this admission?: Yes Summary: Euvolemic. Normotensive. Restart home meds. IV hydralazine. Adjust meds as needed. Outpatient PCP follow-up. 04/25/2019-patient blood pressure today is 130/50. Pulse rate is 61. Temperature 97.5. Respiratory 16. Plan is patient was advised to continue the blood pressure medications at home. (5) CKD (chronic kidney disease), stage IV Is this a current diagnosis for this admission?: Yes Summary: Nonoliguric. Not uremic. Creatinine at baseline. Electrolytes within normal limits. Avoid nephrotoxic agents, monitor volume status and electrolytes. Replace as needed. Outpatient nephrology follow-up. 04/25/2019-patient has history of chronic kidney disease. Patient's baseline creatinine is around 3. On admission it was 3.77 improved to 3.64 today. Acute on chronic renal insufficiency may be secondary to poor oral intake. - Additional Information Resuscitation Status: Full Code Discharge Diet: Cardiac Discharge Activity: Activity As Tolerated Prescriptions: Amox Tr/Potassium Clavulanate [Augmentin 875-125 mg Tablet] 1 tab PO BID #20 tablet Home Medications: Dapsone [Dapsone 25 mg Tablet] 25 mg PO DAILY 09/07/13 Fexofenadine HCl [Laura] 180 mg PO DAILY 09/07/13 [place]-3 Fatty Acids/Fish Oil [Fish Oil 1,000 mg Capsule] 1,000 mg PO DAILY 09/07/13 Telmisartan/Hydrochlorothiazid [Micardis HCT 80-12.5 mg Tablet] 1 tab PO DAILY 09/07/13 Acyclovir [Acyclovir 400 mg Tablet] 400 mg PO Q12 04/24/19 Calcitriol [Rocaltrol 0.25 mcg Capsule] 0.25 mcg PO MOWEFR@1000 04/24/19 Famotidine [Pepcid 40 mg Tablet] 40 mg PO DAILY 04/24/19 Idelalisib [Zydelig] 100 mg PO DAILY 04/24/19 Multivitamin [Tab-A-Deneen (Multiple Vitamin) Tablet] 1 tab PO DAILY 04/24/19 Amox Tr/Potassium Clavulanate [Augmentin 875-125 mg Tablet] 1 tab PO BID #20 tablet 04/25/19 Gemfibrozil [Lopid 600 mg Tablet] 600 mg PO DAILY tablet 04/25/19 History of Present Illness History of Present Illness: CHARIS HERNANDEZ is a 83 year old male 83 year old male past medical history of CLL on dapsone and idelalisib followed by outpatient oncology, CKD stage IV followed by outpatient nephrology, hypertension who presented to ED complaining of right upper extremity swelling redness and pain. Patient stating that he has a dog who does not have any teeth but somehow it scratched his right hand with its mouth last Thursday. He sustained a linear tear over the dorsal aspect of the first right metacarpal. Following that he went to his PCP wound was cleaned but no antibiotics was initiated as there was no sign infection at the time. Yesterday he started to notice swelling, erythema, weeping discharge and pain on his right upper extremity. On physical examination there is a linear wound on the dorsal aspect of the first metacarpals which is edematous with weeping discharge, swollen, tender to palpation. There is redness extending distally to his fingertips and proximally to mid forearm. He describes the pain as sharp, constant, 2/10, radiation proximally. Denies any shortness of breath, chest pain, nausea, diarrhea, constipation or any urinary symptoms. In ED he was found to have WBC of 22.2, platelets 108, no bands, RUE x-ray negative for any acute injuries. He was a started on ceftriaxone and hospital was consulted for admission. Hospital Course Hospital Course: 04/25/[id number]-wgx[age]-old male admitted 3 days ago with dog bite to the right hand. Treated with antibiotics for cellulitis. Blood cultures are negative wound culture is came back as a skin travon. Patient is going to be discharged on Augmentin 1 tablet twice a day for 10 days. Patient was again strongly advised to follow-up with primary care physician in 3 to 5 days. If the symptoms are worsening like redness swelling pain fevers he was strongly advised to come back to the emergency room as soon as possible. Physical Exam Vital Signs: Temp Pulse Resp BP Pulse Ox 97.5 F 61 16 116/74 97 04/25/19 12:56 04/25/19 12:56 04/25/19 12:56 04/25/19 12:56 04/25/19 12:56 Intake & Output 04/24/19 04/25/19 04/26/19 06:59 06:59 06:59 Intake Total 530 1790 50 Balance 530 1790 50 Weight 85 kg 85 kg General appearance: PRESENT: no acute distress, cooperative, well-developed Head exam: PRESENT: atraumatic Eye exam: PRESENT: PERRLA Neck exam: ABSENT: carotid bruit, JVD, lymphadenopathy, thyromegaly Respiratory exam: PRESENT: clear to auscultation una. ABSENT: rales, rhonchi, w heezes Cardiovascular exam: PRESENT: RRR. ABSENT: diastolic murmur, rubs, systolic murmur GI/Abdominal exam: PRESENT: normal bowel sounds, soft. ABSENT: distended, guarding, mass, organolmegaly, rebound, tenderness Rectal exam: PRESENT: deferred Extremities exam: PRESENT: full ROM. ABSENT: calf tenderness, clubbing, pedal edema Neurological exam: PRESENT: alert, awake, oriented to person, oriented to place, oriented to time, oriented to situation, CN II-XII grossly intact. ABSENT: motor sensory deficit Psychiatric exam: PRESENT: appropriate affect, normal mood. ABSENT: homicidal ideation, suicidal ideation Skin exam: PRESENT: other - Examination of the right hand swelling is resolved scratch claudia is resolving. Results Laboratory Results: 04/24/19 05:27 04/24/19 05:27 Impressions: Forearm X-Ray 04/23/19 12:41 IMPRESSION: NEGATIVE STUDY OF THE RIGHT FOREARM. NO RADIOGRAPHIC EVIDENCE OF ACUTE INJURY. Qualifiers - * PATIENT BEING DISCHARGED WITH ANY OF THE FOLLOWING DIAGNOSIS: No Acute Heart Failure - Is this a Heart Failure Patient?: No Plan Time Spent: Greater than 30 Minutes
[2019-04-25] MEDS ORDERED: ACYCLOVIR 200 MG CAPSULE PO SCH (22:00)
[2019-04-26] MEDS ORDERED: MULTIVITAMIN TABLET PO SCH (10:00)
[2019-04-26] MEDS ORDERED: FAMOTIDINE 20 MG TABLET PO SCH (10:00)
[2019-04-27] MEDS ORDERED: CALCITRIOL 0.25 MCG CAPSULE PO SCH (10:00)
== END 2019-04-25 13:46 | disposition home or self-care (01) ==
LOC: ER 11:59 → INTOOBSV 17:20 → EH 17:20 → 5 18:02
PROVIDERS: ADMIT Internal Medicine; ATTEND Internal Medicine
DX: S61.451A Open bite of right hand, initial encounter (principal); L03.113 Cellulitis of right upper limb; W54.0XXA Bitten by dog, initial encounter; C91.10 Chronic lymphocytic leukemia of B-cell type not having achieved remission; I12.9 Hypertensive chronic kidney disease with stage 1 through stage 4 chronic kidney disease, or unspecified chronic kidney disease; N18.4 Chronic kidney disease, stage 4 (severe); I25.10 Atherosclerotic heart disease of native coronary artery without angina pectoris; M19.90 Unspecified osteoarthritis, unspecified site; Z87.891 Personal history of nicotine dependence; Z79.899 Other long term (current) drug therapy
CPT/HCPCS: 99284; 96365; 36415 ×2; 87040; 87070; 87205; 85025; 85027; 85652; 86140; 87077; 80048; 80053; 73090; G0378 ×4; A9270 ×19; J3490 ×4; J0696 ×3

== ENCOUNTER → 2019-10-03 | Outpatient (CLI) | payer MEDICARE, OTHER ==
[2019-10-03 11:34] LABS: HEMATOCRIT 40.1 % (37.9-51.0); HEMOGLOBIN 13.2 g/dL (13.5-17.0); MEAN CORPUSCULAR HEMOGLOBIN 32.5 pg (27.0-33.4); MEAN CORPUSCULAR VOLUME 99 fl (80-97); PLATELET COUNT 134 10^3/uL (150-450); RED BLOOD COUNT 4.06 10^6/uL (4.35-5.55); RED CELL DISTRIBUTION WIDTH 15.3 % (11.5-14.0)
[2019-10-03 11:39] LABS: APPEARANCE,URINE CLEAR; BILIRUBIN,URINE NEGATIVE (NEGATIVE); COLOR,URINE YELLOW; GLUCOSE, URINE NEGATIVE (NEGATIVE); KETONES,URINE NEGATIVE (NEGATIVE); LEUKOCYTE ESTERASE,URINE NEGATIVE (NEGATIVE); NITRITE,URINE NEGATIVE (NEGATIVE); PROTEIN,URINE NEGATIVE (NEGATIVE); UROBILINOGEN,URINE NEGATIVE mg/dL (<2.0)
[2019-10-03 12:06] LABS: ABSOLUTE LYMPHOCYTES# (MANUAL) 8.7 10^3/uL (0.5-4.7); ABSOLUTE MONOCYTES # (MANUAL) 1.1 10^3/uL (0.1-1.4); BASOPHILS % (MANUAL) 2 % (0-2); EOSINOPHILS % (MANUAL) 3 % (0-6); LYMPHOCYTES % (MANUAL) 44 % (13-45); MONOCYTES % (MANUAL) 7 % (3-13); SEGMENTED NEUTROPHILS % (MAN) 30 % (42-78); TOTAL CELLS COUNTED 100
[2019-10-03 12:08] LABS: ANISOCYTOSIS SLIGHT; OVALOCYTES SLIGHT; PLATELET COMMENT DECREASED; POIKILOCYTOSIS SLIGHT; TOXIC GRANULATION 2+
[2019-10-03 13:13] LABS: ALBUMIN 4.6 g/dL (3.5-5.0); ANION GAP 10 (5-19); BLOOD UREA NITROGEN 16 mg/dL (7-20); CALCIUM 9.7 mg/dL (8.4-10.2); CARBON DIOXIDE 22 mmol/L (22-30); CHLORIDE 104 mmol/L (98-107); GLUCOSE 160 mg/dL (75-110); PHOSPHORUS 3.7 mg/dL (2.5-4.5); POTASSIUM 4.6 mmol/L (3.6-5.0)
[2019-10-04 13:37] LABS: MICROALBUMIN URINE 11.6 ug/mL (Not Estab.)
== END ==
LOC: OD 10:57
PROVIDERS: ATTEND Internal Medicine Nephrology
DX: I12.9 Hypertensive chronic kidney disease with stage 1 through stage 4 chronic kidney disease, or unspecified chronic kidney disease (principal); N18.4 Chronic kidney disease, stage 4 (severe); N25.81 Secondary hyperparathyroidism of renal origin; D63.1 Anemia in chronic kidney disease
CPT/HCPCS: 36415; 80069; 81001; 82043; 82306; 82570; 83970; 85025

== ENCOUNTER → 2019-10-10 | Outpatient (CLI) | payer MEDICARE, OTHER ==
[2019-10-10 15:55] LABS: ANION GAP 10 (5-19); BLOOD UREA NITROGEN 48 mg/dL (7-20); CALCIUM 8.7 mg/dL (8.4-10.2); CARBON DIOXIDE 24 mmol/L (22-30); CHLORIDE 103 mmol/L (98-107); GLUCOSE 86 mg/dL (75-110); POTASSIUM 4.3 mmol/L (3.6-5.0)
== END ==
LOC: OD 14:52
PROVIDERS: ATTEND Internal Medicine Nephrology
DX: I12.9 Hypertensive chronic kidney disease with stage 1 through stage 4 chronic kidney disease, or unspecified chronic kidney disease (principal); N18.4 Chronic kidney disease, stage 4 (severe); E55.9 Vitamin D deficiency, unspecified; D64.9 Anemia, unspecified
CPT/HCPCS: 36415; 80048

== ENCOUNTER 2020-06-19 20:36 | Emergency (ER) | payer MEDICARE, OTHER ==
--- NOTE | 2020-06-19 21:27 | ER Document Report ---
ED Medical Screen (RME) - General Chief Complaint: Fall Injury Stated Complaint: ARM INURY Time Seen by Provider: 06/19/20 21:20 Primary Care Provider: WILLOW GRIGSBY MD [Primary Care Provider] - Follow up as needed Mode of Arrival: Ambulatory Information source: Patient Notes: HPI; 4-year-old male presents to the emergency room with skin tears to bilateral upper forearms. Patient states he tripped and fell over the dog kennel at home. Denies hitting his head. States he cut his left forearm on the dog kennel. Unknown last tetanus shot. Bleeding is controlled. Not on blood thinners. PE: Alert and oriented x3. Lungs: Clear to auscultation without rales, rhonchi, wheezes. Heart: Regular rate rhythm without murmurs, rubs, gallops. There is skin tears to the right wrist and right elbow. There is a large skin tear with laceration noted to the mid left forearm. Positive bilateral pedal pulses. I have greeted and performed a rapid initial assessment of this patient. A comprehensive ED assessment and evaluation of the patient, analysis of test results and completion of the medical decision making process will be conducted by additional ED providers. I have specifically instructed the patient or family members with the patient to immediately return to any nursing staff should anything change in the patient's condition or with their chief complaint. TRAVEL OUTSIDE OF THE [place] IN LAST 30 DAYS: No - Related Data Allergies/Adverse Reactions: No Known Allergies Allergy (Verified 04/23/19 12:02) Past Medical History - Social History Frequency of alcohol use: None Drug Abuse: None - Past Medical History Cardiac Medical History: Reports: Hx Coronary Artery Disease, Hx Hypertension - MEDICATED AND CONTROLLED Denies: Hx Heart Attack Pulmonary Medical History: Reports: Hx Bronchitis, Hx COPD Denies: Hx Asthma, Hx Pneumonia Neurological Medical History: Denies: Hx Cerebrovascular Accident, Hx Seizures Renal/ Medical History: Denies: Hx Peritoneal Dialysis GI Medical History: Denies: Hx Hepatitis, Hx Hiatal Hernia, Hx Ulcer Musculoskeltal Medical History: Reports Hx Arthritis Infectious Medical History: Denies: Hx Hepatitis Past Surgical History: Denies: Hx Open Heart Surgery, Hx Pacemaker - Immunizations Hx Diphtheria, Pertussis, Tetanus Vaccination: Yes Physical Exam - Vital signs Vitals: Temp Pulse Resp BP Pulse Ox 97.5 F 65 16 162/77 H 96 06/19/20 20:53 06/19/20 20:53 06/19/20 20:53 06/19/20 20:53 06/19/20 20:53 Course - Vital Signs Vital signs: Temp Pulse Resp BP Pulse Ox 97.5 F 65 16 162/77 H 96 06/19/20 20:53 06/19/20 20:53 06/19/20 20:53 06/19/20 20:53 06/19/20 20:53 Doctor's Discharge - Discharge Referrals: WILLOW GRIGSBY MD [Primary Care Provider] - Follow up as needed
[2020-06-19] MEDS ORDERED: DIPH/PERTUSS(ACELL)/TETANUS VAC/PF 0.5 ML SYR (>=10YO) IM ONE (21:28)
[2020-06-19] MEDS ORDERED: LIDOCAINE 1% INJ-PF (10 MG/ML) 30 ML SDV INJ ONE (23:07)
--- NOTE | 2020-06-19 23:21 | ER Document Report ---
ED Fall - General Chief Complaint: Fall Injury Stated Complaint: ARM INURY Time Seen by Provider: 06/19/20 21:20 Primary Care Provider: WILLOW GRIGSBY MD [ACTIVE STAFF] - Follow up as needed Mode of Arrival: Ambulatory Information source: Patient Notes: CHIEF COMPLAINT: Skin tears and laceration from fall HPI: 84-year-old male presenting for multiple skin tears and a laceration after a mechanical fall over a dog gate. Did not hit his head. Complains of skin tear to the right wrist right elbow and laceration to the left forearm. Denies other injuries or complaints at this time ROS: See HPI - all other systems were reviewed and are otherwise negative Constitutional: no fever or recent illness Eyes: no drainage, no blurred vision ENT: no runny nose, no sore throat Cardiovascular: no chest pain Resp: no SOB, no cough GI: no vomiting, no diarrhea : no dysuria Integumentary: Positive laceration and skin tear Allergy: no hives Musculoskeletal: + extremity pain or swelling Neurological: no numbness/tingling, no weakness MEDICATIONS: I agree with the patient medications as charted by the RN. ALLERGIES: I agree with the allergies as charted by the RN. PAST MEDICAL HISTORY/PAST SURGICAL HISTORY: Reviewed and agree as charted by RN. SOCIAL HISTORY: Reviewed and agree as charted by RN. FAMILY HISTORY: No significant familial comorbid conditions directly related to patient complaint EXAM: Reviewed vital signs as charted by RN. CONSTITUTIONAL: Airway patent; alert and oriented and responds appropriately to questions. Well-appearing, well-nourished HEAD: Normocephalic, atraumatic EYES: Conjunctivae clear, sclerae non-icteric ENT: normal nose; no bleeding; normal pharynx, normal voice, no stridor, no intraoral lacerations or dental trauma noted NECK: Trachea is midline; spine non-tender, no step-offs, good range of motion; no contusions or hematomas CARD: Normal symmetric pulses; RRR; no murmurs, no clicks, no rubs, no gallops RESP: Normal chest excursion with respiration; chest wall appears atraumatic without ecchymoses or crepitance; Breath sounds clear and equal bilaterally ABD/GI: Appears atraumatic without contusions or hematomas; non-distended, soft, non-tender, no rebound, no guarding; no palpable organomegaly or masses PELVIS: Stable, nontender BACK: The back appears atraumatic, no step-offs; spine is nontender; there is no CVA tenderness EXT: Normal ROM in all joints; non-tender to palpation; no cyanosis, no effusions, no edema SKIN: Normal color for age and race; warm; dry; good turgor; superficial skin tear measuring 2 cm to the lateral right elbow. Superficial abrasion to the right dorsal wrist is ring 3 cm. There is a 7 cm gaping type laceration in the soft tissues of the dorsal left mid forearm with removal of a significant portion of skin. NEURO: Moves all extremities equally; Motor and sensory function intact PSYCH: The patient's mood and manner are appropriate. MDM: 84-year-old male mechanical fall multiple skin tears and abrasions on the right arm that will just require cleaning and dressing by nursing. The laceration on the left forearm will require suture closure to bring the tissue together there is a moderate amount of skin that was damaged or removed in the fall and the dorsal area will need to granulate. I will place Vicryl sutures so that they will dissolve over time TRAVEL OUTSIDE OF THE [place] IN LAST 30 DAYS: No - Related data Allergies/Adverse Reactions: No Known Allergies Allergy (Verified 04/23/19 12:02) Past Medical History - General Information source: Patient - Social History Smoking Status: Never Smoker Frequency of alcohol use: None Drug Abuse: None Family History: None Patient has homicidal ideation: No - Past Medical History Cardiac Medical History: Reports: Hx Coronary Artery Disease, Hx Hypertension - MEDICATED AND CONTROLLED Denies: Hx Heart Attack Pulmonary Medical History: Reports: Hx Bronchitis, Hx COPD Denies: Hx Asthma, Hx Pneumonia Neurological Medical History: Denies: Hx Cerebrovascular Accident, Hx Seizures Renal/ Medical History: Denies: Hx Peritoneal Dialysis GI Medical History: Denies: Hx Hepatitis, Hx Hiatal Hernia, Hx Ulcer Musculoskeletal Medical History: Reports Hx Arthritis Infectious Medical History: Denies: Hx Hepatitis Past Surgical History: Denies: Hx Open Heart Surgery, Hx Pacemaker - Immunizations Hx Diphtheria, Pertussis, Tetanus Vaccination: Yes Hx Pneumococcal Vaccination: 12/10/10 Physical Exam - Vital signs Vitals: Temp Pulse Resp BP Pulse Ox 97.5 F 65 16 162/77 H 96 06/19/20 20:53 06/19/20 20:53 06/19/20 20:53 06/19/20 20:53 06/19/20 20:53 Course - Vital Signs Vital signs: Temp Pulse Resp BP Pulse Ox 97.5 F 65 16 162/77 H 96 06/19/20 20:53 06/19/20 20:53 06/19/20 20:53 06/19/20 20:53 06/19/20 20:53 Procedures - Laceration/Wound Repair Left Dorsal Arm Time completed: 00:20 Wound length (cm): 7 Wound's Depth, Shape: Superficial, Linear, Contused tissue Laceration pre-procedure: Sterile PPE donned, Sterile drapes applied, Shur-Clens applied, Other - saline Anesthetic type: 1% Lidocaine Volume Anesthetic (mLs): 5 Wound explored: Clean, No foreign body removed Irrigated w/ Saline (mLs): 750 Wound Debrided: Moderate Wound Repaired With: Sutures Suture Size/Type: Vicryl, 4:0 Layer Closure?: No Post-procedure wound care: Sterile dressing applied Post-procedure NV exam normal: Yes Complications: No Discharge - Discharge Clinical Impression: Fall Qualifiers: Encounter type: initial encounter Qualified Code(s): W19.XXXA - Unspecified fall, initial encounter Skin tear of right elbow without complication Qualifiers: Encounter type: initial encounter Qualified Code(s): S51.011A - Laceration without foreign body of right elbow, initial encounter Tear of skin of right wrist Qualifiers: Encounter type: initial encounter Qualified Code(s): S61.511A - Laceration without foreign body of right wrist, initial encounter Laceration of forearm, left, complicated Qualifiers: Encounter type: initial encounter Qualified Code(s): S51.812A - Laceration without foreign body of left forearm, initial encounter Condition: Stable Disposition: HOME, SELF-CARE Additional Instructions: Clean the skin tears daily with soap and water apply a dressing until healed. The laceration on the left forearm was repaired with dissolving sutures. Gently clean this area with soap and water and apply a small amount of antibiotic ointment until healed. Follow-up for wound check with your primary care provider call for appointment Referrals: WILLOW GRIGSBY MD [ACTIVE STAFF] - Follow up as needed
[2020-06-20 00:41] VITALS: BP 149/41
== END 2020-06-20 01:00 | disposition home or self-care (01) ==
LOC: ER 20:36
DX: S51.812A Laceration without foreign body of left forearm, initial encounter (principal); S51.011A Laceration without foreign body of right elbow, initial encounter; S61.511A Laceration without foreign body of right wrist, initial encounter; W01.0XXA Fall on same level from slipping, tripping and stumbling without subsequent striking against object, initial encounter; I25.10 Atherosclerotic heart disease of native coronary artery without angina pectoris; I10 Essential (primary) hypertension; J44.9 Chronic obstructive pulmonary disease, unspecified; Z23 Encounter for immunization
CPT/HCPCS: 99283; 90471; 90715; 12002; J3490